=== PATIENT | male | born 1980 | race American Indian/Alaskan Native ===

== ENCOUNTER 2021-04-19 04:50 | Emergency (ER) | payer SELFPAY ==
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
[2021-04-19] MEDS ORDERED: DOBUTAMINE IV ONE (10:25)
[2021-04-19] MEDS ORDERED: DEXTROSE IV ONE (10:25)
[2021-04-19] MEDS ORDERED: DOPAMINE IV ONE (10:30)
[2021-04-19] MEDS ORDERED: D5W IV ONE (10:30)
[2021-04-19 11:36] VITALS: BP 108/68
== END 2021-04-19 10:05 ==
LOC: ED 04:50
DX: S09.90XA Unspecified injury of head, initial encounter (principal); V87.7XXA Person injured in collision between other specified motor vehicles (traffic), initial encounter; Y93.89 Activity, other specified; Y92.488 Other paved roadways as the place of occurrence of the external cause; Y99.8 Other external cause status
CPT/HCPCS: 70450; 72125; 99283; J1250; J1265